=== PATIENT | female | born 2000 | race Caucasian/White ===

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

== ENCOUNTER 2020-09-18 16:16 | Emergency (ER) | payer OTHER ==
[~2020-09-18] VITALS: Ht 154.9 cm; Wt 54.5 kg
[2020-09-18 16:35] VITALS: BP 105/68; PULSE 95; TEMP 97.9
== END 2020-09-18 18:16 | disposition home or self-care (01) ==
LOC: COL.ER 16:16
DX: M54.2 Cervicalgia (principal); F17.210 Nicotine dependence, cigarettes, uncomplicated; V43.52XA Car driver injured in collision with other type car in traffic accident, initial encounter

== ENCOUNTER → 2021-02-02 | Outpatient (CLI) | payer OTHER | LOC: COL.RAD 09:19 | DX: Z02.71 Encounter for disability determination (principal); M25.561 Pain in right knee ==

== ENCOUNTER 2023-12-22 19:20 | Emergency (ER) | payer MEDICAID ==
[~2023-12-22] VITALS: Ht 157.5 cm; Wt 71.8 kg
[2023-12-22 19:25] VITALS: BP 102/70; PULSE 100; TEMP 98.8
== END 2023-12-22 20:11 | disposition home or self-care (01) ==
LOC: COL.ER 19:20
DX: N93.9 Abnormal uterine and vaginal bleeding, unspecified (principal)